=== PATIENT | female | born 1950 | race Caucasian/White ===

== ENCOUNTER 2016-09-06 22:45 | Emergency (ER) | payer OTHER ==
[~2016-09-06] VITALS: Ht 154.9 cm; Wt 70.0 kg
[2016-09-06 22:48] VITALS: BP 148/71; PULSE 86; RESP 20; TEMP 98.9; O2SAT 100
[2016-09-06 23:27] VITALS: BP 171/74; PULSE 81; RESP 16; TEMP 98.3
[2016-09-06] MEDS ORDERED: SODIUM CHLORIDE 0.9% FLUSH 10 ML FLUSH IVF PRN (23:45)
--- NOTE | 2016-09-06 23:48 | PD ---
HPI Chief Complaint: Chest Pain Time Seen by Provider: 23:30 Travel History International Travel<30 days: No Contact w/Intl Traveler<30days: No Traveled to known affect area: No History of Present Illness HPI The patient is a 65-year-old female who presents emergency department with her son for cough and cold symptoms. The patient is Mongolian speaking, from [place], her son translating at bedside per her request. The patient has been visiting from [place] last several days, it had a three-day history of productive cough producing yellow sputum, shortness of breath, and anterior chest wall pain secondary to coughing. The son states the patient has had fevers at home as high as 101 which has been controlled with ibuprofen. There was a family member with similar symptoms and was diagnosed with pneumonia. The patient also has a decreased appetite over the last several days but has been drinking liquids. She states that food states "better", according to the son. She denies any nausea, vomiting, or abdominal pain. She denies any associated dysuria. Symptoms are moderate, possibly exacerbated by underlying pneumonia, there are no current alleviating factors. The son states there is been no international travel in one year. PFSH Past Medical History Cardiovascular Problems: Yes (HIGH CHOLESTEROL) Diabetes: Yes (METFORMIN) Past Surgical History Narrative Surgical Uterine surgery for removal of tumor Social History Tobacco Use: No Allergies-Medications (Allergen,Severity, Reaction): Coded Allergies: No Known Allergies (Unverified , 09/06/16) Reported Meds & Prescriptions Reported Meds & Active Scripts Active Ventolin Hfa 18 GM Inh (Albuterol Sulfate) 90 Mcg/Act Aer 2 Puff INH Q6H PRN Levofloxacin 750 Mg Tablet 750 Mg PO DAILY 7 Days Review of Systems Except as stated in HPI: all other systems reviewed are Neg General / Constitutional: Positive: Fever, Chills HENT: No: Lightheadedness Cardiovascular: Positive: Chest Pain or Discomfort (chest wall pain secondary to coughing) Respiratory: Positive: Cough, Shortness of Breath Gastrointestinal: Positive: Loss of Appetite, No: Nausea, Vomiting Genitourinary: No: Decreased Urinary Output Musculoskeletal: Positive: Weakness Neurologic: Positive: Weakness Physical Exam Narrative GENERAL: Awake, alert, nontoxic-appearing 65 year-old female who appears her stated age and is in no acute respiratory distress. SKIN: Focused skin assessment warm/dry. HEAD: Atraumatic. Normocephalic. EYES: Pupils equal and round. No scleral icterus. No injection or drainage. ENT: No nasal bleeding or discharge. Mucous membranes pink and moist. NECK: Trachea midline. No JVD. CARDIOVASCULAR: Regular rate and rhythm. No murmur appreciated. Heart rate in the 80s. RESPIRATORY: No accessory muscle use. Rhonchi noted in the right base. GASTROINTESTINAL: Abdomen soft, non-tender, nondistended. No rebound tenderness. MUSCULOSKELETAL: No obvious deformities. No clubbing. No cyanosis. No edema. NEUROLOGICAL: Awake and alert. No obvious cranial nerve deficits. Motor grossly within normal limits. Normal speech. PSYCHIATRIC: Appropriate mood and affect; insight and judgment normal. Data Data Last Documented VS Vital Signs Date Time Temp Pulse Resp B/P Pulse Ox O2 Delivery O2 Flow Rate FiO2 09/06/16 23:27 98.3 81 16 171/74 09/06/16 22:48 100 Room Air Orders Complete Blood Count With Diff (09/06/16 23:36) Comprehensive Metabolic Panel (09/06/16 23:36) B-Type Natriuretic Peptide (09/06/16 23:36) Act Partial Throm Time (Ptt) (09/06/16 23:36) Prothrombin Time / Inr (Pt) (09/06/16 23:36) Magnesium (Mg) (09/06/16 23:36) Ckmb (Isoenzyme) Profile (09/06/16 23:36) Troponin I (09/06/16 23:36) Urinalysis - C+S If Indicated (09/06/16 23:36) Influenzae A/B Antigen (09/06/16 23:36) Iv Access Insert/Monitor (09/06/16 23:36) Electrocardiogram (09/06/16 23:36) Ecg Monitoring (09/06/16 23:36) Oximetry (09/06/16 23:36) Oxygen Administration (09/06/16 23:36) Chest, Single Ap (09/06/16 23:36) Sodium Chloride 0.9% Flush (Ns Flush) (09/06/16 23:45) Albuterol-Ipratropium Neb (Duoneb Neb) (09/06/16 23:45) Lactic Acid (09/06/16 23:36) Blood Culture (09/06/16 23:36) CKMB (09/06/16 23:50) CKMB% (09/06/16 23:50) Levofloxacin 750 Mg Premix Inj (Levaquin (09/07/16 01:00) Labs Laboratory Tests Test 09/06/16 09/07/16 23:50 01:00 White Blood Count 3.8 TH/MM3 Red Blood Count 4.48 MIL/MM3 Hemoglobin 10.8 GM/DL Hematocrit 33.5 % Mean Corpuscular Volume 74.7 FL Mean Corpuscular Hemoglobin 24.1 PG Mean Corpuscular Hemoglobin 32.3 % Concent Red Cell Distribution Width 14.2 % Platelet Count 171 TH/MM3 Mean Platelet Volume 7.7 FL Neutrophils (%) (Auto) 36.4 % Lymphocytes (%) (Auto) 46.0 % Monocytes (%) (Auto) 12.0 % Eosinophils (%) (Auto) 4.7 % Basophils (%) (Auto) 0.9 % Neutrophils # (Auto) 1.4 TH/MM3 Lymphocytes # (Auto) 1.7 TH/MM3 Monocytes # (Auto) 0.4 TH/MM3 Eosinophils # (Auto) 0.2 TH/MM3 Basophils # (Auto) 0.0 TH/MM3 CBC Comment DIFF FINAL Differential Comment Prothrombin Time 10.7 SEC Prothromb Time International 1.0 RATIO Ratio Activated Partial 25.5 SEC Thromboplast Time Sodium Level 139 MEQ/L Potassium Level 4.1 MEQ/L Chloride Level 103 MEQ/L Carbon Dioxide Level 28.2 MEQ/L Anion Gap 8 MEQ/L Blood Urea Nitrogen 15 MG/DL Creatinine 0.90 MG/DL Estimat Glomerular Filtration 63 ML/MIN Rate Random Glucose 122 MG/DL Lactic Acid Level 1.5 mmol/L Calcium Level 8.9 MG/DL Magnesium Level 2.1 MG/DL Total Bilirubin 0.3 MG/DL Aspartate Amino Transf 21 U/L (AST/SGOT) Alanine Aminotransferase 29 U/L (ALT/SGPT) Alkaline Phosphatase 101 U/L Total Creatine Kinase 187 U/L Creatine Kinase MB 0.8 NG/ML Troponin I LESS THAN 0.02 NG/ML B-Type Natriuretic Peptide 12 PG/ML Total Protein 7.4 GM/DL Albumin 3.5 GM/DL Urine Color YELLOW Urine Turbidity CLEAR Urine pH 5.0 Urine Specific [place] 1.013 Urine Protein NEG mg/dL Urine Glucose (UA) NEG mg/dL Urine Ketones NEG mg/dL Urine Occult Blood NEG Urine Nitrite NEG Urine Bilirubin NEG Urine Urobilinogen LESS THAN 2.0 MG/DL Urine Leukocyte Esterase NEG Urine RBC LESS THAN 1 /hpf Urine WBC 1 /hpf Urine Hyaline Casts 1 /lpf Microscopic Urinalysis Comment CULT NOT INDICATED MDM Medical Decision Making Medical Screen Exam Complete: Yes Emergency Medical Condition: Yes Medical Record Reviewed: Yes Interpretation(s) EKG reveals normal sinus rhythm with unifocal PVC. Laboratory Tests Test 09/06/16 23:50 White Blood Count 3.8 TH/MM3 Red Blood Count 4.48 MIL/MM3 Hemoglobin 10.8 GM/DL Hematocrit 33.5 % Mean Corpuscular Volume 74.7 FL Mean Corpuscular Hemoglobin 24.1 PG Mean Corpuscular Hemoglobin 32.3 % Concent Red Cell Distribution Width 14.2 % Platelet Count 171 TH/MM3 Mean Platelet Volume 7.7 FL Neutrophils (%) (Auto) 36.4 % Lymphocytes (%) (Auto) 46.0 % Monocytes (%) (Auto) 12.0 % Eosinophils (%) (Auto) 4.7 % Basophils (%) (Auto) 0.9 % Neutrophils # (Auto) 1.4 TH/MM3 Lymphocytes # (Auto) 1.7 TH/MM3 Monocytes # (Auto) 0.4 TH/MM3 Eosinophils # (Auto) 0.2 TH/MM3 Basophils # (Auto) 0.0 TH/MM3 CBC Comment DIFF FINAL Differential Comment Prothrombin Time 10.7 SEC Prothromb Time International 1.0 RATIO Ratio Activated Partial 25.5 SEC Thromboplast Time Sodium Level 139 MEQ/L Potassium Level 4.1 MEQ/L Chloride Level 103 MEQ/L Carbon Dioxide Level 28.2 MEQ/L Anion Gap 8 MEQ/L Blood Urea Nitrogen 15 MG/DL Creatinine 0.90 MG/DL Estimat Glomerular Filtration 63 ML/MIN Rate Random Glucose 122 MG/DL Lactic Acid Level 1.5 mmol/L Calcium Level 8.9 MG/DL Magnesium Level 2.1 MG/DL Total Bilirubin 0.3 MG/DL Aspartate Amino Transf 21 U/L (AST/SGOT) Alanine Aminotransferase 29 U/L (ALT/SGPT) Alkaline Phosphatase 101 U/L Total Creatine Kinase 187 U/L Creatine Kinase MB 0.8 NG/ML Troponin I LESS THAN 0.02 NG/ML B-Type Natriuretic Peptide 12 PG/ML Total Protein 7.4 GM/DL Albumin 3.5 GM/DL Last Impressions Chest X-Ray 09/06/16 8036 Signed Impressions: Service Date/Time: Tuesday, September 06, 2016 23:33 - CONCLUSION: The lungs are clear. Sergo Rawls MD UA is negative Date/Time Procedure Status Source Growth 09/06/16 23:50 Aerobic Blood Culture Received Blood Peripheral Pending 09/06/16 23:50 Anaerobic Blood Culture Received Blood Peripheral Pending 09/06/16 23:51 Influenza Types A,B Antigen (MENG) - Final Complete Nasal Aspirate NEGATIVE FOR FLU A AND B ANTIGEN.... 09/06/16 23:55 Aerobic Blood Culture Received Blood Peripheral Pending 09/06/16 23:55 Anaerobic Blood Culture Received Blood Peripheral Pending Differential Diagnosis Differential diagnosis includes pneumonia, bronchitis, pulmonary edema, congestive heart failure, pleural effusion, acute coronary syndrome, pulmonary embolism, MERS, influenza. Narrative Course IV was established, labs are drawn and sent, and the patient was placed on cardiac telemetry monitoring and continuous pulse oximetry monitoring. EKG was ordered and interpreted. Chest x-ray was obtained. The patient was administered DuoNeb's. The patient's white count is slightly low at 3.8, lactic acid is reassuring. Laboratory evaluation is unremarkable. Chest x- rays clear, however, I do suspect patient may have an early right base pneumonia. Therefore, I will treat clinically with Levaquin and albuterol inhalers. I had a discussion with the patient's son at bedside, they will be provided a copy of her lab results and x-ray results at discharge. They are advised to return if symptoms worsen or progress. The patient is not tachycardic or hypoxic, I do not suspect pulmonary embolism. Diagnosis Primary Impression: Bronchitis Patient Instructions: General Instructions Additional Instructions: Medications as directed. Follow-up with her primary physician. Return if symptoms worsen or progress. Please provide the patient a copy of her lab results and x-ray results at discharge. Med/Other Pt SpecificInfo: Prescription(s) given Scripts Albuterol 18 GM Inh (Ventolin Hfa 18 GM Inh)90 Mcg/Act Aer2 Puff INH Q6H PRN ( SHORTNESS OF BREATH) #1 INHALER Ref 0 Prov:Kenney Head MD 09/07/16 Levofloxacin 750 Mg [id number] Mg PO DAILY 7 Days Ref 0 Prov:Kenney Head MD 09/07/16 Disposition: 01 DISCHARGE HOME Condition: Stable Kenney Head MD Sep 06, 2016 23:48
--- NOTE | 2016-09-06 23:55 | RADRPT ---
EXAM DATE/TIME: 09/06/2016 23:33 [facility] COMPARISON: No previous studies available for comparison. INDICATIONS : Short of breath. MEDICAL HISTORY : None. SURGICAL HISTORY : None. ENCOUNTER: Initial ACUITY: 1 day PAIN SCORE: 0/10 LOCATION: Bilateral chest FINDINGS: A single view of the chest demonstrates the lungs to be symmetrically aerated without evidence of mas s, infiltrate or effusion. The cardiomediastinal contours are unremarkable. Osseous structures are intact. CONCLUSION: The lungs are clear. Sergo Rawls MD on September 06, 2016 at 23:53 Board Certified Radiologist. This report was verified electronically.
[2016-09-07 00:05] LABS: AUTOMATED NEUTROPHIL # 1.4 TH/MM3 (1.8-7.7); BASOPHIL % 0.9 % (0.0-2.0); EOSINOPHIL # 0.2 TH/MM3 (0-0.4); EOSINOPHIL % 4.7 % (0.0-4.0); HEMATOCRIT 33.5 % (35.0-46.0); HEMO FLAGS DIFF FINAL; LYMPHOCYTE # 1.7 TH/MM3 (1.0-4.8); MEAN CELL VOLUME 74.7 FL (80.0-100.0); MEAN CORPUSCULAR HEMOGLOBIN 24.1 PG (27.0-34.0); MEAN CORPUSCULAR HGB CONC 32.3 % (32.0-36.0); NEUT % 36.4 % (16.0-70.0); PLATELET COUNT 171 TH/MM3 (150-450); RED BLOOD COUNT 4.48 MIL/MM3 (4.00-5.30); RED CELL DISTRIBUTION WIDTH 14.2 % (11.6-17.2); WHITE BLOOD COUNT 3.8 TH/MM3 (4.0-11.0)
[2016-09-07] MEDS: RESP: ALBUTEROL 2.5 MG/IPRATROPIUM 0.5 MG NEB (SCH) INH (00:08)
[2016-09-07 00:16] LABS: APTT (PATIENT) 25.5 SEC (24.3-30.1); PROTHROMBIN TIME - PATIENT 10.7 SEC (9.8-11.6)
[2016-09-07 00:27] LABS: ANION GAP 8 MEQ/L (5-15); AST (GOT) 21 U/L (15-37); BICARBONATE 28.2 MEQ/L (21.0-32.0); BLOOD UREA NITROGEN 15 MG/DL (7-18); CHLORIDE 103 MEQ/L (98-107); GLOMERULAR FILTRATION RATE 63 ML/MIN (>89); MAGNESIUM 2.1 MG/DL (1.5-2.5); POTASSIUM 4.1 MEQ/L (3.5-5.1); SODIUM (NA) 139 MEQ/L (136-145)
[2016-09-07 00:28] LABS: ALT (GPT) 29 U/L (10-53)
[2016-09-07 00:32] LABS: ALKALINE PHOSPHATASE 101 U/L (45-117); CREATINE KINASE 187 U/L (26-192); TOTAL BILIRUBIN ADULT 0.3 MG/DL (0.2-1.0)
[2016-09-07 00:44] LABS: CKMB 0.8 NG/ML (0.5-3.6)
[2016-09-07] MEDS ORDERED: LEVOFLOXACIN 750 MG PREMIX INJ 150 ML IV ONE (01:00)
[2016-09-07] MEDS ORDERED: LEVO750T3 PO (01:03)
[2016-09-07] MEDS ORDERED: VENTAER INH (01:03)
[2016-09-07 01:11] LABS: BLOOD, URINE NEG (NEG); COMMENT (UR) CULT NOT INDICATED; CULTURE IF INDICATED CULT NOT INDICATED; GLUCOSE,URINE NEG (NEG); HYALINE CAST, URINE 1 /lpf (RARE); KETONE, URINE NEG (NEG); NITRITE,URINE NEG (NEG); URINE COLOR YELLOW (YELLW/STRAW)
[2016-09-07] MEDS ORDERED: SODIUM CHLOR 0.9% 1000 ML INJ 1,000 ML IV ONE (02:45)
--- NOTE | 2016-09-08 07:47 | EKG ---
Date Performed: 09/06/2016 Time Performed: 23:44:02 PTAGE: 65 years EKG: Sinus rhythm WITH OCCASIONAL VENTRICULAR PREMATURE COMPLEXES BORDERLINE ECG WARNING: DATA QUALITY MAY AFFECT INTE RPRETATION NO PREVIOUS TRACING DOCTOR: Hortencia Matias Interpretating Date/Time 09/08/2016 07:43:52
== END 2016-09-07 03:45 | disposition home or self-care (01) ==
LOC: NEPE 22:45
DX: J40 Bronchitis, not specified as acute or chronic (principal); E11.9 Type 2 diabetes mellitus without complications; Z79.84 Long term (current) use of oral hypoglycemic drugs
CPT/HCPCS: 71010; 80053; 81001; 82550; 82552; 83605; 83735; 83880; 84484; 85025; 85610; 85730; 87040; 87804; 93005; 94640; 94664; 96365; 99285; J1956; J7030